=== PATIENT | male | born 1950 | race Caucasian/White ===

== ENCOUNTER 2016-05-24 16:17 | Emergency (ER) | payer OTHER ==
[~2016-05-24] VITALS: Ht 172.7 cm; Wt 63.5 kg
[~2016-05-24 16:17] MED LIST: ADVIL COLD &1 TABLET PO; ADVIL200 MG PO; ASPIRIN325 MG PO; CLOPIDOGREL75 MG PO; HYPERTENSION MEDS; NEURONTIN600 MG PO; PERCOCET 5/31 TABLET PO; PRAVACHOL40 MG PO; ULTRAM50 MG PO; ZANAFLEX4 M1 PO; ZESTRIL10 MG PO
[2016-05-24 16:50] LABS: EOSINOPHIL (%) 0.5 % (0-5); EOSINOPHIL COUNT 0.1 K/uL (0-0.3); HEMATOCRIT 37.1 % (38.0-50.0); IMMATURE GRANULOCYTE (%) 0.1 % (0.0-0.7); IMMATURE GRANULOCYTE COUNT 0.1 K/uL; LYMPHOCYTE COUNT 1.3 K/uL (1.0-2.8); MCH 30.9 PG (29.0-34.0); MCHC 34.8 G/DL (30.0-36.0); MCV 88.8 FL (86-99); MEAN PLAT.VOLUME 10.9 uM^3 (9.0-12.4); MONOCYTE (%) 6.9 % (3-12); MONOCYTE COUNT 0.7 K/uL (0-0.8); NEUTROPHIL (%) 80.1 % (45-76); NEUTROPHIL COUNT 8.3 K/uL (1.8-6.4); PLATELET COUNT 212 K/uL (156-360); RBC DIS.WIDTH-CV 13.2 % (11.8-14.6); RBC DIS.WIDTH-SD 41.9 % (39-53); RED BLOOD COUNT 4.18 M/uL (4.00-5.50); WHITE BLOOD COUNT 10.3 K/uL (4.1-10.2)
[2016-05-24 17:01] LABS: CHLORIDE 101 mEq/L (99-109); POTASSIUM 3.7 mEq/L (3.7-5.4); SODIUM 132 mEq/L (136-147)
[2016-05-24 17:03] LABS: GLUCOSE 124 mg/dL (70-99)
[2016-05-24 17:04] LABS: ANION GAP 10 MEQ/L (2-14)
[2016-05-24 17:05] LABS: TOTAL BILIRUBIN 0.9 mg/dL (0.0-1.0)
[2016-05-24 17:07] LABS: ALKALINE PHOSPHATASE 92 IU/L (3-129); GFR ESTIMATE (CALCULATED) > 59 mL/min/
[2016-05-24 17:08] LABS: UREA NITROGEN (BUN) 25 mg/dL (9-23)
[2016-05-24 17:10] LABS: LIPASE 6 U/L (1.0-51.0)
[2016-05-24 19:10] LABS: ADD MIUA? YES; BILIRUBIN NEGATIVE; BLOOD NEGATIVE; COLOR YELLOW ((YELLOW)); GLUCOSE (STRIP) NEGATIVE; KETONES NEGATIVE; LEUKOCYTES NEGATIVE; NITRITE NEGATIVE; PROTEIN (STRIP) NEGATIVE
[2016-05-24 20:04] LABS: BACTERIA NONE SEEN; CASTS NONE SEEN /LPF; CRYSTALS NONE SEEN; EPITHELIAL CELLS RARE; MUCUS NONE SEEN; RED BLOOD CELLS 0-5 /HPF (0-5); UCUL ADDED? NO; WHITE BLOOD CELLS 0-5 /HPF (0-5)
[2016-05-24] MEDS ORDERED: ZOFRAN ODT4 MG PO (22:19)
[2016-05-24] MEDS ORDERED: PERCOCET 5/31 TABLET PO (22:19)
[2016-05-24 22:39] VITALS: BP 133/79
== END 2016-05-24 22:40 | disposition home or self-care (01) ==
LOC: EME 16:17
PROVIDERS: Emergency Medicine
DX: R10.11 Right upper quadrant pain (principal); I10 Essential (primary) hypertension; F17.200 Nicotine dependence, unspecified, uncomplicated; Z86.73 Personal history of transient ischemic attack (TIA), and cerebral infarction without residual deficits; Z91.040 Latex allergy status
CPT/HCPCS: 74177; 76705; 80053; 81003; 83690; 85025; 93005; 99281; 99285; J1170; J2405; J3010; J7030